=== PATIENT | male | born 1995 ===

== ENCOUNTER 2017-12-29 00:39 | Emergency (ER) | payer SELFPAY ==
[2017-12-29 01:52] VITALS: BP 109/66; PULSE 62; RESP 18; TEMP 98.2; O2SAT 98
[2017-12-29 01:53] VITALS: BMI 24.0
== END 2017-12-29 02:08 | disposition left against medical advice (07) ==
LOC: EDBD 00:39 → H.ER 00:39
DX: Z02.89 Encounter for other administrative examinations (principal)